=== PATIENT | male | born 1990 | race Caucasian/White ===

== ENCOUNTER 2017-02-28 18:26 | Inpatient (IN) | payer SELFPAY ==
[~2017-02-28] VITALS: Ht 184.2 cm; Wt 134.5 kg
--- NOTE | 2017-02-28 19:07 | EMERGENCY ROOM VISIT NOTE ---
History Report prepared by Jackson: Nicolasa Issa Under the Supervision of: Dr. Danish Macario M.D. First contact with patient: 18:41 Chief Complaint: MENTAL HEALTH EVALUATION Stated Complaint: UNSTABLE MENTALLY History of Present Illness The patient is a 26 year old male who presents to the Emergency Room for a mental health evaluation. The patient has been feeling intermittently depressed for a while now. He has been under increased stress with his relationship and work. Yesterday, he had an episode where he shut down and felt like he could not do anything. He has been lashing out at people. He has thought about hurting himself by driving his motorcycle into a car. He has not tried hurting himself. He denies any thoughts of hurting others. He has never had psychiatric help before. He has not been sleeping well. He notes that he recently got a new puppy. His appetite has been normal. He is not on any medications. He admits to occasional alcohol use. He denies any drug use. He does not have any weakness, abdominal pain, leg swelling, or other physical complaints. Source of History: patient Onset: yesterday Position: other (mental health) Quality: other (evaluation) Timing: other (persistent) Associated Symptoms: No abdominal pain, No weakness Note: Pt reports thoughts of hurting self, decreased sleep. Pt denies leg swelling. Review of Systems See HPI for pertinent positives & negatives. A total of 10 systems reviewed and were otherwise negative. Past Medical & Surgical Old medical records were reviewed. Nurse's notes were reviewed and I agree with. No history of previous mental health diagnosis or treatment Family History No significant family history Social History Smoking Status: Never Smoker Occupation Status: employed Current/Historical Medications No Active Prescriptions or Reported Meds Allergies Uncoded Allergies: POISON POORNIMA, OAK, SUMAC (Allergy, Unknown, 04/07/02) Physical Exam Vital Signs Date Time Temp Pulse Resp B/P (MAP) Pulse Ox O2 Delivery O2 Flow Rate FiO2 02/28/17 20:26 106 20 136/90 100 Room Air 02/28/17 18:36 37.0 101 20 144/85 99 Room Air Physical Exam General: Non-ill appearing young male in no acute distress. Somewhat poor eye contact. HEENT: Normal cephalic atraumatic. Pupils are equal round and reactive to light. Extraocular movements are intact. Oropharynx is pink with moist mucous membranes. No swelling of the mouth lips or tongue. Neck: Supple with a midline trachea. No meningeal signs or stiffness, no JVD or bruits. No Stridor. Chest: Clear to auscultation bilaterally. No wheezes or rhonchi. No increased work of breathing. Heart: regular rate and rhythm. Abdomen: Soft nontender, nondistended without rebound guarding or rigidity. Extremities: No cyanosis clubbing or edema. No calf tenderness or assymetry Spine/Back. Non tender to palpation. No CVA tenderness Skin: Good turgor without rashes. Neurologic exam: Cranial nerves two through 12 are intact. Motor and sensation are intact and symmetrical throughout. Psych: Normal thought process. Mildly flattened affect. Denies homicidal ideation. No suicidal ideation at present. Medical Decision & Procedures Laboratory Results 02/28/17 18:58 Red Blood Count 5.49, Mean Corpuscular Volume 90.3, Mean Corpuscular Hemoglobin 30.8, Mean Corpuscular Hemoglobin Concent 34.1, Mean Platelet Volume 9.6, Neutrophils (%) (Auto) 80.2, Lymphocytes (%) (Auto) 5.0, Monocytes (%) (Auto) 14.5, Eosinophils (%) (Auto) 0.1, Basophils (%) (Auto) 0.1, Neutrophils # (Auto ) 6.95, Lymphocytes # (Auto) 0.43, Monocytes # (Auto) 1.26, Eosinophils # (Auto ) 0.01, Basophils # (Auto) 0.01 02/28/17 18:58 Test 02/28/17 18:58 02/28/17 19:20 White Blood Count 8.67 K/uL (4.8-10.8) Red Blood Count 5.49 M/uL (4.7-6.1) Hemoglobin 16.9 g/dL (14.0-18.0) Hematocrit 49.6 % (42-52) Mean Corpuscular Volume 90.3 fL (80-100) Mean Corpuscular Hemoglobin 30.8 pg (25-34) Mean Corpuscular Hemoglobin Concent 34.1 g/dl (32-36) Platelet Count 180 K/uL (130-400) Mean Platelet Volume 9.6 fL (7.4-10.4) Neutrophils (%) (Auto) 80.2 % Lymphocytes (%) (Auto) 5.0 % Monocytes (%) (Auto) 14.5 % Eosinophils (%) (Auto) 0.1 % Basophils (%) (Auto) 0.1 % Neutrophils # (Auto) 6.95 K/uL (1.4-6.5) Lymphocytes # (Auto) 0.43 K/uL (1.2-3.4) Monocytes # (Auto) 1.26 K/uL (0.11-0.59) Eosinophils # (Auto) 0.01 K/uL (0-0.5) Basophils # (Auto) 0.01 K/uL (0-0.2) RDW Standard Deviation 44.0 fL (36.4-46.3) RDW Coefficient of Variation 13.4 % (11.5-14.5) Immature Granulocyte % (Auto) 0.1 % Immature Granulocyte # (Auto) 0.01 K/uL (0.00-0.02) Anion Gap 7.0 mmol/L (3-11) Est Creatinine Clear Calc Drug Dose 131.5 ml/min Estimated GFR () 94.5 Estimated GFR (Non- 81.6 BUN/Creatinine Ratio 9.8 (10-20) Calcium Level 9.2 mg/dl (8.5-10.1) Total Bilirubin 0.6 mg/dl (0.2-1) Direct Bilirubin 0.1 mg/dl (0-0.2) Aspartate Amino Transf (AST/SGOT) 47 U/L (15-37) Alanine Aminotransferase (ALT/SGPT) 107 U/L (12-78) Alkaline Phosphatase 71 U/L (45-117) Total Protein 8.2 gm/dl (6.4-8.2) Albumin 4.2 gm/dl (3.4-5.0) Lipase 222 U/L (73-393) Thyroid Stimulating Hormone (TSH) 0.316 uIu/ml (0.300-4.500) Salicylates Level < 1.7 mg/dl (2.8-20) Acetaminophen Level < 2 ug/ml (10-30) Ethyl Alcohol mg/dL < 3.0 mg/dl (0-3) Urine Opiates Screen NEG (NEG) Urine Methadone, Qualitative NEG (NEG) Urine Barbiturates NEG (NEG) Urine Phencyclidine (PCP) Level NEG (NEG) Ur Amphetamine/Methamphetamine NEG (NEG) MDMA (Ecstasy) Screen NEG (NEG) Urine Benzodiazepines Screen NEG (NEG) Urine Cocaine Metabolite NEG (NEG) Urine Marijuana (THC) NEG (NEG) Laboratory studies as stated above per my review. Medications Administered Medications (Trade) Dose Ordered Sig/Nisa Route Start Time Stop Time Status Last Admin Dose Admin Acetaminophen (Tylenol Tab) 650 mg NOW STAT PO 02/28/17 22:50 02/28/17 22:51 DC 02/28/17 22:59 650 MG ED Course 184: Past medical records reviewed. The patient was evaluated in room A5, and a complete history and physical examination were performed. 225: Acetaminophen 650 mg PO. 225: The patient has been accepted to [address] [place] [address]. Medical Decision Differentials include, but are not limited to; depression, anxiety, electrolyte or metabolic abnormality. This patient comes in as described above. He is requesting mental health evaluation and treatment. He has had fleeting suicidal thoughts but not at present denies homicidal thoughts. He has not tried to hurt himself. Multiple blood tests was obtained for medical clearance as well as urine. He was reassessed frequently. He was medically cleared. He has no electrolyte or metabolic abnormalities. He has nothing to suggest acute toxicologic process. He was evaluated by our case management team and evaluated by 3 S. and will be admitted for further inpatient treatment and evaluation. Medication Reconcilliation Current Medication List: was personally reviewed by me Blood Pressure Screening Patient's blood pressure: Elevated blood pressure Blood pressure disposition: Elevated BP felt to be situational Impression Primary Impression: Depression Scribe Attestation The scribe's documentation has been prepared under my direction and personally reviewed by me in its entirety. I confirm that the note above accurately reflects all work, treatment, procedures, and medical decision making performed by me. Departure Information Dispostion Mental Health Acute Care Prescriptions No Active Prescriptions or Reported Meds Referrals No Doctor, Assigned (PCP) Patient Instructions [facility]
[2017-02-28 19:14] LABS: BASO % 0.1 %; BASO ABS # 0.01 K/uL (0-0.2); EOS % 0.1 %; EOS ABS # 0.01 K/uL (0-0.5); HEMATOCRIT 49.6 % (42-52); HEMOGLOBIN 16.9 g/dL (14.0-18.0); IG# 0.01 K/uL (0.00-0.02); LYMPH ABS # 0.43 K/uL (1.2-3.4); MEAN CELL VOLUME 90.3 fL (80-100); MEAN CORPUSCULAR HEMOGLOBIN 30.8 pg (25-34); MEAN CORPUSCULAR HGB CONC 34.1 g/dl (32-36); MEAN PLATELET VOLUME 9.6 fL (7.4-10.4); MONO % 14.5 %; MONO ABS # 1.26 K/uL (0.11-0.59); NEUT % 80.2 %; NEUT ABS # 6.95 K/uL (1.4-6.5); PLATELET COUNT 180 K/uL (130-400); RED CELL DISTRIBUTION WIDTH CV 13.4 % (11.5-14.5); WHITE BLOOD COUNT 8.67 K/uL (4.8-10.8)
[2017-02-28 19:32] LABS: ALBUMIN 4.2 gm/dl (3.4-5.0); CALCIUM 9.2 mg/dl (8.5-10.1); CREATININE 1.21 mg/dl (0.60-1.40); POTASSIUM 3.5 mmol/L (3.5-5.1)
[2017-02-28 19:42] LABS: TOTAL PROTEIN 8.2 gm/dl (6.4-8.2)
[2017-02-28 20:26] VITALS: O2SAT 100
[2017-02-28] MEDS ORDERED: ACETAMINOPHEN 325 MG TAB PO STA (22:50)
[2017-02-28] MEDS ORDERED: NURSING VERBAL MED ORDER ONE (23:00)
[2017-02-28] MEDS ORDERED: MAGNESIUM HYDROXIDE SUSP 30 ML UDC PO PRN (23:30)
[2017-02-28] MEDS ORDERED: ACETAMINOPHEN 325 MG TAB PO PRN (23:30)
[2017-02-28] MEDS ORDERED: SODIUM CHLORIDE 0.65% NA SOLN 45 ML (OCEAN) PRN (23:30)
[2017-02-28] MEDS ORDERED: ALUMINUM/MAGNESIUM SUSP 30 ML UDC PO PRN (23:30)
[2017-02-28] MEDS ORDERED: BISMUTH SUBSALICYLATE PER ML OMNICELL CHARGE PO PRN (23:30)
[2017-02-28] MEDS ORDERED: hydrOXYzine HCL 25 MG TAB PO PRN ×2 (23:30)
[2017-03-01 00:27] VITALS: BP 136/90; PULSE 82; TEMP 37; Ht 184.2 cm; Wt 134.5 kg
[2017-03-01 07:05] VITALS: BP_SYST 118; BP_SYST 138; BP_DIAS 78; BP_DIAS 83; PULSE 78; PULSE 87; TEMP 36.6
--- NOTE | 2017-03-01 12:27 | Psychiatric History & Physical ---
History Date of Service Mar 01, 2017. Identifying Data Don Dudley is a 26-year-old male admitted on Feb 28, 2017 at 23:02 on a voluntary admission from [facility] ER where he presented with suicidal ideation to crash motorcycle. He has no prior psychiatric history. He is found to be an adequate historian and appears reliable. Chief Complaint "I just got overwhelmed. It felt like shit storm". History of Present Illness This patient presented to the ER last evening. Complained of feeling intermittently depressed for a while with increased stress associated with work and relationship. On day prior to presentation he felt "shut down and felt like he could not do anything." Had been lashing out at people and had thoughts about hurting himself by driving motorcycle into a car he denied acts of furtherance. He denied thoughts of harming others. He noted other stressors included getting a new puppy and diminished sleep. He was medically cleared and admitted to the behavioral health unit on a voluntary status. Today he reports his mood baseline is typically on the good side but has experienced episodic lows that have been situationally triggered and typically last only several days. During these times of low mood he has experienced passive thoughts of life not being worth living but describes these as extremely fleeting and he is aware when they occur that he needs to do something different. He denies any history of suicidal attempts or self- injurious behavior. He denies thoughts of harming anyone else. Regarding suicidal ideation experienced prior to arrival he describes feeling acutely overwhelmed by his circumstances and had visions of himself crashing his motorcycle however made no efforts to follow through with that plan and denies any other thoughts of self-harm. This morning he denies continued suicidal ideation and expresses some eagerness to discharge from the hospital as soon as possible "to move forward." He is able to identify disappointment that a relationship with a longtime female friend seems to become more intimate and then more distant repeatedly. He would like to pursue an intimate relationship with this person and is disappointed when things backslide and he describes it is confusing. He believes this in combination with chronic work stress and the sleep disturbance associated with great training a new puppy who is only 3 months old resulted in feeling so overwhelmed this week. He has been waking up every 2 hours for the dog. Energy fair. Has had a few crying spells. Denies changes in appetite. Denies anhedonia. Denies excessive free- floating anxiety or history of panic attacks. He does describe some mild social anxiety in meeting new people but denies that this is significantly impairing or distressing. Denies symptoms of OCD, PTSD, joe, or psychosis. He denies substance abuse. Denies history of violence or access to guns. He is hesitant to consider a psychotropic stating "I don't want anything that is going to numb me." He is interested in therapy. "I think it would just really help to talk to someone. I tend to keep it all bottled up until I explode." Past Psychiatric History Current OP Treatment: no current treatment Prior OP Treatment: no prior treatment Prior Psych Hospitalizations: none Access to a Gun: No Suicide Attempts: No Past Medication Trials none Past Medical/Surgical History History of Concussion/Seizure: No Denies any history of chronic medical problems including personal history of obesity, dyslipidemia, cardiovascular disease, seizure disorder, diabetes, hypertension Allergies Allergies: Uncoded Allergies: POISON POORNIMA, OAK, SUMAC (Allergy, Unknown, 04/07/02) Home Medications No Active Prescriptions or Reported Meds Family History No significant family history Denies any known family history of psychiatric diagnoses. Father may have hypertension. Grandmother had diabetes and hypertension. Otherwise he is unaware of a family history of obesity, diabetes, hypertension, dyslipidemia, or cardiovascular disease. Alcohol Use Alcohol Use In Past 12 Months: Yes ("Moderate. Nothing every day") AUDIT Total Score: 6 Last used alcohol on ' Nicole consuming approximately 4 alcoholic beverages. Reports alcohol use is infrequent and denies a history of daily use , associated social problems, or withdrawal Smoking Use Smoking Status: Never Smoker Substance History He denies any history of recreational drug use Personal History Lives in: [place] with several roommates Childhood: From [place], [place]. Reports "okay" relationship with parents. Father works at [employer] and mother is a homemaker. He is the youngest of 3 siblings. Never got along well with oldest brother who is 10 years his senior. As middle brother became more controlling, their relationship declined as well. 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 Otherwise 10 point review of systems is diffusely negative except as per history of present illness Examination Physical Examination A physical exam was performed in the ER prior to admission to the unit by Dr Macario. I accept that physical as medical clearance for the inpatient physical exam. Vital Signs Vital Signs Past 12 Hours Date Time Temp Pulse Resp B/P (MAP) Pulse Ox O2 Delivery O2 Flow Rate FiO2 03/01/17 07:05 36.6 78 16 118/78 87 138/83 03/01/17 00:27 37.0 82 20 136/90 Laboratory Results Last 24 Hours Test 02/28/17 18:58 02/28/17 19:20 White Blood Count 8.67 K/uL Red Blood Count 5.49 M/uL Hemoglobin 16.9 g/dL Hematocrit 49.6 % Mean Corpuscular Volume 90.3 fL Mean Corpuscular Hemoglobin 30.8 pg Mean Corpuscular Hemoglobin Concent 34.1 g/dl Platelet Count 180 K/uL Mean Platelet Volume 9.6 fL Neutrophils (%) (Auto) 80.2 % Lymphocytes (%) (Auto) 5.0 % Monocytes (%) (Auto) 14.5 % Eosinophils (%) (Auto) 0.1 % Basophils (%) (Auto) 0.1 % Neutrophils # (Auto) 6.95 K/uL Lymphocytes # (Auto) 0.43 K/uL Monocytes # (Auto) 1.26 K/uL Eosinophils # (Auto) 0.01 K/uL Basophils # (Auto) 0.01 K/uL RDW Standard Deviation 44.0 fL RDW Coefficient of Variation 13.4 % Immature Granulocyte % (Auto) 0.1 % Immature Granulocyte # (Auto) 0.01 K/uL Sodium Level 138 mmol/L Potassium Level 3.5 mmol/L Chloride Level 103 mmol/L Carbon Dioxide Level 27 mmol/L Anion Gap 7.0 mmol/L Blood Urea Nitrogen 12 mg/dl Creatinine 1.21 mg/dl Est Creatinine Clear Calc Drug Dose 131.5 ml/min Estimated GFR () 94.5 Estimated GFR (Non- 81.6 BUN/Creatinine Ratio 9.8 Random Glucose 96 mg/dl Calcium Level 9.2 mg/dl Total Bilirubin 0.6 mg/dl Direct Bilirubin 0.1 mg/dl Aspartate Amino Transf (AST/SGOT) 47 U/L Alanine Aminotransferase (ALT/SGPT) 107 U/L Alkaline Phosphatase 71 U/L Total Protein 8.2 gm/dl Albumin 4.2 gm/dl Lipase 222 U/L Thyroid Stimulating Hormone (TSH) 0.316 uIu/ml Salicylates Level < 1.7 mg/dl Acetaminophen Level < 2 ug/ml Ethyl Alcohol mg/dL < 3.0 mg/dl Urine Opiates Screen NEG Urine Methadone, Qualitative NEG Urine Barbiturates NEG Urine Phencyclidine (PCP) Level NEG Ur Amphetamine/Methamphetamine NEG MDMA (Ecstasy) Screen NEG Urine Benzodiazepines Screen NEG Urine Cocaine Metabolite NEG Urine Marijuana (THC) NEG Mental Examination During interview pt is: alert and oriented, cooperative Appearance: appropriately dressed, disheveled Eye contact is: good Motor behavior is: psychomotor retardation Speech: normal in rate, rhythm & volume Affect: mood congruent, constricted Mood is: depressed Thought process: goal directed, linear, logical, clear, coherent Thought content: reality based without delusions Suicidal thought are: denied (presently. Suicidal ideation with plan to crash motorcycle on initial presentation) Homicidal thoughts are: denied Hallucinations: denies auditory, denies visual Cognition: memory grossly intact, attention grossly intact Intelligence estimated to be: consistent with level of education Insight: fair Judgement: limited Impression / Recommendations Impression This is a 26-year-old single gentleman with no prior psychiatric history who recently found himself emotionally overwhelmed in the setting of relationship disappointment, sleep deprivation, and chronic work stress. He decompensated to the point of inability to function at work and experienced acute onset suicidal ideation which has subsequently quickly resolved. He describes a history of milder brief mood decompensations in the past, typically situationally triggered. He expresses a desire to pursue psychotherapy but is reluctant to consider psychotropic medication. Diagnosis: MDD, single episode, severe, without psychosis Inventory Assets Strengths: Help seeking, no prior psychiatric history Needs: Acute emotional support and a period of monitoring Risk Factors Assessment Male: Yes : Yes /single/: Yes Access to guns: No Health problems: No Substance use disorders: No Previous attempt: No Family history of suicide: No Previous psychiatric stay: No Hopelessness: No Smoker: No Protective Factors Assessment Mu-Ism beliefs: No : No Responsible for young children: No Employed: Yes Recommendations (1) Depression 03/01/17 - Patient is admitted to the behavioral health unit on a voluntary status and will participate in unit therapeutic programming as appropriate while monitored on suicide precautions with safety checks - Suicidal ideation quickly resolved this morning but requires a period of monitoring for safety prior to discharge - Educated regarding consideration for antidepressant trial which included a lengthy discussion guarding risks and benefits of various agents. I encouraged him to consider a low-dose SSRI to reduce risk of further decompensation however he was reluctant but will be readdressed again over the course of his stay - Patient was strongly encouraged to participate in individual and group therapeutic programming - Will refer patient for outpatient therapy prior to discharge CPT Code Initial Hospital Care: [id number]
[2017-03-02 07:07] VITALS: BP_SYST 125; BP_SYST 126; BP_DIAS 81; BP_DIAS 84; PULSE 74; PULSE 93; TEMP 36.8
--- NOTE | 2017-03-02 13:26 | Psychiatric Progress Notes ---
Progress Note Date of Service Mar 02, 2017. Interval History Don Dudley is a 26-year-old male admitted on Feb 28, 2017 at 23:02 on a voluntary admission from [facility] ER where he presented with suicidal ideation to crash motorcycle. He has no prior psychiatric history. Chief Complaint "Better". Subjective Patient was seen & assessed interval progress reviewed with Treatment Team. STaff report he submitted a 72 hour notice, and is refusing family involvement. He did agree to a meeting with his friend and it was held this morning. Per social work, she told him she is not interested in a romantic relationship. They discussed the mixed messages and appropriate boundaries, as they have been physically intimate. He was seen today with Nadeem Crawford, MS3. He reports improved mood, although still feels disappointed about the outcome of his meeting. He is hopeful that he can improve, and wants to learn what he can do to address his issues and move forward. He denies SI. He is willing to follow up with an outpatient therapist, and SW trying to find a provider as he has no insurance. He is hoping to leave as soon as tomorrow, stating he doesn't think groups work well for him, and he prefers intensive 1:1 therapy. Sleep Information Total Hours of Sleep: 7.00 Meal Information Percent of Breakfast Consumed: 100 Percent of Lunch Consumed: 100 Percent of Dinner Consumed: 100 Mental Status Exam During interview pt is: alert and oriented, cooperative Appearance: appropriately dressed, disheveled Eye contact is: good Motor behavior is: psychomotor retardation Speech: normal in rate, rhythm & volume Affect: mood congruent, constricted Mood is: depressed Thought process: goal directed, linear, logical, clear, coherent Thought content: reality based without delusions Suicidal thought are: denied Homicidal thoughts are: denied Hallucinations: denies auditory, denies visual Cognition: memory grossly intact, attention grossly intact Intelligence estimated to be: consistent with level of education Insight: fair Judgement: fair Impression 26-year-old single gentleman with no prior psychiatric history who recently found himself emotionally overwhelmed in the setting of relationship disappointment, sleep deprivation, and chronic work stress. He decompensated to the point of inability to function at work and experienced suicidal ideation which has subsequently quickly resolved. He describes a history of milder brief mood decompensations in the past, typically situationally triggered. He expresses a desire to pursue psychotherapy but is reluctant to consider psychotropic medication. He had a meeting with his female friend today, which was difficult as she confirmed her lack of interest in pursuing a romantic relationship. We are exploring options for outpatient therapy. Diagnosis: MDD, single episode, severe, without psychosis Plan (1) Depression 03/01/17 - Patient is admitted to the behavioral health unit on a voluntary status and will participate in unit therapeutic programming as appropriate while monitored on suicide precautions with safety checks - Suicidal ideation quickly resolved this morning but requires a period of monitoring for safety prior to discharge - Educated regarding consideration for antidepressant trial which included a lengthy discussion guarding risks and benefits of various agents. I encouraged him to consider a low-dose SSRI to reduce risk of further decompensation however he was reluctant but will be readdressed again over the course of his stay - Patient was strongly encouraged to participate in individual and group therapeutic programming - Will refer patient for outpatient therapy prior to discharge 03/02 - Meeting held with female friend and addressed their relationship. Patient continues to decline medication, preferring to try to treat his symptoms with therapy alone. Social work to explore options for therapy, as he does not have insurance and has limited income. Perhaps he could be referred through [facility] for assistance. Patient to work on a safety plan, and may be discharged as early as tomorrow. Discharge / Aftercare Planning Primary Care Physician: Name: Devora Therapist: Name: Devora Counselor Supervisor: Name: Devora Visit Code E&M Code: 62635 Inventory Assets Strengths: Help seeking, no prior psychiatric history Needs: Acute emotional support and a period of monitoring Risk Factors Assessment Male: Yes : Yes /single/: Yes Health problems: No Substance use disorders: No Previous attempt: No Family history of suicide: No Previous psychiatric stay: No Hopelessness: No Smoker: No Protective Factors Assessment Scientology beliefs: No : No Responsible for young children: No Employed: Yes Data Vital Signs Last 24 Hrs: Date Time Temp Pulse Resp B/P (MAP) Pulse Ox O2 Delivery O2 Flow Rate FiO2 03/02/17 07:07 36.8 74 16 125/81 93 126/84 Meds Administered Last 24 Hrs: Meds Administered (Past 24Hrs) Medications (Trade) Dose Ordered Sig/Nisa Route Start Time Stop Time Status Last Admin Dose Admin Acetaminophen (Tylenol Tab) 650 mg NOW STAT PO 02/28/17 22:50 02/28/17 22:51 DC 02/28/17 22:59 650 MG Hydroxyzine HCl (Vistaril Tab) 50 mg HSZ PRN PO 02/28/17 23:30 03/30/17 23:29 02/28/17 23:49 50 MG
[2017-03-03 06:57] VITALS: BP_SYST 123; BP_SYST 125; BP_DIAS 83; BP_DIAS 87; PULSE 69; PULSE 99; TEMP 36.5
--- NOTE | 2017-03-03 09:40 | Discharge Instructions ---
Discharge Instructions Admission Reason for Admission: MDD Discharge Discharge Diagnosis / Problem: Depression Discharge Goals Goal(s): Improve function, Increase independence Activity Recommendations Activity Limitations: resume your previous activity . Instructions / Follow-Up Instructions / Follow-Up . SPECIAL CARE INSTRUCTIONS: 1. Follow through with your scheduled aftercare appointments. If unable to keep an appointment, please call to reschedule. 2. Take your medication only as prescribed. Medication should not be changed or stopped without the approval of your doctor. In the event of worsening symptoms or concerns about side effects, contact your doctor immediately. 3. Utilize new healthy coping skills, anger management skills, and stress management skills learned during your hospitalization. Journal feelings and process them with a support person. Identify stressors or situations that may result in relapse, deterioration or inappropriate behaviors and develop a plan to deal with those issues. 4. If your coping skills are ineffective and you are in crisis, contact your outpatient providers for direction. If unable to reach your providers, please call the CAN HELP LINE AT or go to the closest Emergency Room. 5. Avoid alcohol and un-prescribed drugs. 6. You have been provided with the Mental Health Advance Directives Pamphlet for your review. AFTERCARE APPOINTMENTS: * Please call your insurance company prior to your scheduled appointment to confirm your aftercare providers are covered. Take your insurance information to your appointments. . Diet Recommendations Diet(s): Regular Diet Laboratory Results Test 02/28/17 18:58 02/28/17 19:20 Range/Units White Blood Count 8.67 4.8-10.8 K/uL Red Blood Count 5.49 4.7-6.1 M/uL Hemoglobin 16.9 14.0-18.0 g/dL Hematocrit 49.6 42-52 % Mean Corpuscular Volume 90.3 80-100 fL Mean Corpuscular Hemoglobin 30.8 25-34 pg Mean Corpuscular Hemoglobin Concent 34.1 32-36 g/dl Platelet Count 180 130-400 K/uL Mean Platelet Volume 9.6 7.4-10.4 fL Neutrophils (%) (Auto) 80.2 % Lymphocytes (%) (Auto) 5.0 % Monocytes (%) (Auto) 14.5 % Eosinophils (%) (Auto) 0.1 % Basophils (%) (Auto) 0.1 % Neutrophils # (Auto) 6.95 1.4-6.5 K/uL Lymphocytes # (Auto) 0.43 1.2-3.4 K/uL Monocytes # (Auto) 1.26 0.11-0.59 K/uL Eosinophils # (Auto) 0.01 0-0.5 K/uL Basophils # (Auto) 0.01 0-0.2 K/uL RDW Standard Deviation 44.0 36.4-46.3 fL RDW Coefficient of Variation 13.4 11.5-14.5 % Immature Granulocyte % (Auto) 0.1 % Immature Granulocyte # (Auto) 0.01 0.00-0.02 K/uL Sodium Level 138 136-145 mmol/L Potassium Level 3.5 3.5-5.1 mmol/L Chloride Level 103 98-107 mmol/L Carbon Dioxide Level 27 21-32 mmol/L Anion Gap 7.0 3-11 mmol/L Blood Urea Nitrogen 12 7-18 mg/dl Creatinine 1.21 0.60-1.40 mg/dl Est Creatinine Clear Calc Drug Dose 131.5 ml/min Estimated GFR () 94.5 Estimated GFR (Non- 81.6 BUN/Creatinine Ratio 9.8 10-20 Random Glucose 96 70-99 mg/dl Calcium Level 9.2 8.5-10.1 mg/dl Total Bilirubin 0.6 0.2-1 mg/dl Direct Bilirubin 0.1 0-0.2 mg/dl Aspartate Amino Transf (AST/SGOT) 47 15-37 U/L Alanine Aminotransferase (ALT/SGPT) 107 12-78 U/L Alkaline Phosphatase 71 45-117 U/L Total Protein 8.2 6.4-8.2 gm/dl Albumin 4.2 3.4-5.0 gm/dl Lipase 222 73-393 U/L Thyroid Stimulating Hormone (TSH) 0.316 0.300-4.500 uIu/ml Salicylates Level < 1.7 2.8-20 mg/dl Acetaminophen Level < 2 10-30 ug/ml Ethyl Alcohol mg/dL < 3.0 0-3 mg/dl Urine Opiates Screen NEG NEG Urine Methadone, Qualitative NEG NEG Urine Barbiturates NEG NEG Urine Phencyclidine (PCP) Level NEG NEG Ur Amphetamine/Methamphetamine NEG NEG MDMA (Ecstasy) Screen NEG NEG Urine Benzodiazepines Screen NEG NEG Urine Cocaine Metabolite NEG NEG Urine Marijuana (THC) NEG NEG Medical Emergencies . Who to Call and When: Medical Emergencies: If at any time you feel your situation is an emergency, please call 911 immediately. . Non-Emergent Contact Non-Emergency issues call your: Psychiatrist, Therapist . "Provider Documentation" section prepared by Oly Lomeli. . VTE Core Measure Inpt VTE Proph given/why not?: Treatment not indicated
--- NOTE | 2017-03-03 10:02 | Discharge Summary ---
Discharge Summary Dates / Dispostion Admission Date / Time: Feb 28, 2017 at 23:02 Discharge Date: Mar 03, 2017 Discharge Disposition: Home Principal Diagnosis (1) Depression Discharge / Aftercare Planning Primary Care Physician: Name: none Therapist: Name: Nahomy Eisenberg Date of Appointment: Mar 04, 2017 Time of Appointment: 11:00 am Appointment Notes: [address] [place] [id number] Fullerette: Name: Luísies Medication Reconciliation Medication Profile: No Active Prescriptions or Reported Meds Admission HPI Per the Admitting provider: This patient presented to the ER last evening. Complained of feeling intermittently depressed for a while with increased stress associated with work and relationship. On day prior to presentation he felt "shut down and felt like he could not do anything." Had been lashing out at people and had thoughts about hurting himself by driving motorcycle into a car he denied acts of furtherance. He denied thoughts of harming others. He noted other stressors included getting a new puppy and diminished sleep. He was medically cleared and admitted to the behavioral health unit on a voluntary status. Today he reports his mood baseline is typically on the good side but has experienced episodic lows that have been situationally triggered and typically last only several days. During these times of low mood he has experienced passive thoughts of life not being worth living but describes these as extremely fleeting and he is aware when they occur that he needs to do something different. He denies any history of suicidal attempts or self- injurious behavior. He denies thoughts of harming anyone else. Regarding suicidal ideation experienced prior to arrival he describes feeling acutely overwhelmed by his circumstances and had visions of himself crashing his motorcycle however made no efforts to follow through with that plan and denies any other thoughts of self-harm. This morning he denies continued suicidal ideation and expresses some eagerness to discharge from the hospital as soon as possible "to move forward." He is able to identify disappointment that a relationship with a longtime female friend seems to become more intimate and then more distant repeatedly. He would like to pursue an intimate relationship with this person and is disappointed when things backslide and he describes it is confusing. He believes this in combination with chronic work stress and the sleep disturbance associated with great training a new puppy who is only 3 months old resulted in feeling so overwhelmed this week. He has been waking up every 2 hours for the dog. Energy fair. Has had a few crying spells. Denies changes in appetite. Denies anhedonia. Denies excessive free- floating anxiety or history of panic attacks. He does describe some mild social anxiety in meeting new people but denies that this is significantly impairing or distressing. Denies symptoms of OCD, PTSD, joe, or psychosis. He denies substance abuse. Denies history of violence or access to guns. He is hesitant to consider a psychotropic stating "I don't want anything that is going to numb me." He is interested in therapy. "I think it would just really help to talk to someone. I tend to keep it all bottled up until I explode. Hospital Course (1) Depression 03/01/17 - Patient is admitted to the behavioral health unit on a voluntary status and will participate in unit therapeutic programming as appropriate while monitored on suicide precautions with safety checks - Suicidal ideation quickly resolved this morning but requires a period of monitoring for safety prior to discharge - Educated regarding consideration for antidepressant trial which included a lengthy discussion guarding risks and benefits of various agents. I encouraged him to consider a low-dose SSRI to reduce risk of further decompensation however he was reluctant but will be readdressed again over the course of his stay - Patient was strongly encouraged to participate in individual and group therapeutic programming - Will refer patient for outpatient therapy prior to discharge 03/02 - Meeting held with female friend and addressed their relationship. Patient continues to decline medication, preferring to try to treat his symptoms with therapy alone. Social work to explore options for therapy, as he does not have insurance and has limited income. Perhaps he could be referred through [facility] for assistance. Patient to work on a safety plan, and may be discharged as early as tomorrow. Risk Factors Assessment Male: Yes : Yes /single/: Yes Health problems: No Substance use disorders: No Previous attempt: No Family history of suicide: No Previous psychiatric stay: No Hopelessness: No Smoker: No Protective Factors Assessment Adventist beliefs: No : No Responsible for young children: No Employed: Yes Day of Discharge Assessment COURSE OF HOSPITALIZATION: The patient was on our unit for 3 days. He was admitted voluntarily with multiple stressors including work, having a new puppy , and relationship issues. He had a female friend with whom he wanted to have a serious relationship however the friend wanted to keep it superficial. She did come in for a meeting during which time she was able to tell him she did not want a more serious relationship and as a matter fact wanted to end the relationship altogether. He processed this with staff after the meeting, understanding his friend's wishes. Although it's not what he wanted he felt okay with it and said he wouldn't work to move past this. He declined the offer of medications during his stay. He was willing for outpatient therapy and was established with [facility] for outpatient therapy starting tomorrow, March 04. He denied any further thoughts of suicide. He denied any homicidal ideation. He denied any evidence of thought disorder. He did submit a 72 hour notice to withdraw from treatment during his first stay. There was no criteria to keep him against his will and so the patient will be discharged today. DAY OF DISCHARGE ASSESSMENT: Today the patient is requesting discharge. He has no concerns about going home. He is looking forward to getting some fast food, returning to work. He continues to deny any suicidal or homicidal thinking. We discussed a safety plan which includes taking a ride in his car, talking with friends. His boss at work knows he was here and so that will be a resource as well. His therapy appointment is tomorrow. Today he is casually and appropriately dressed and groomed. Gait and station are within normal limits. Eye contact is good. Affect is restricted. Speech is of normal rate volume and tone. Thoughts are organized, goal directed, and without evidence of thought disorder. Recent and remote memory are intact per conversation. Intelligence is estimated to be average. Insight and judgment are improved over admission. Laboratory 02/28/17 18:58 Red Blood Count 5.49, Mean Corpuscular Volume 90.3, Mean Corpuscular Hemoglobin 30.8, Mean Corpuscular Hemoglobin Concent 34.1, Mean Platelet Volume 9.6, Neutrophils (%) (Auto) 80.2, Lymphocytes (%) (Auto) 5.0, Monocytes (%) (Auto) 14.5, Eosinophils (%) (Auto) 0.1, Basophils (%) (Auto) 0.1, Neutrophils # (Auto ) 6.95, Lymphocytes # (Auto) 0.43, Monocytes # (Auto) 1.26, Eosinophils # (Auto ) 0.01, Basophils # (Auto) 0.01 02/28/17 18:58 Test 02/28/17 18:58 02/28/17 19:20 White Blood Count 8.67 K/uL (4.8-10.8) Red Blood Count 5.49 M/uL (4.7-6.1) Hemoglobin 16.9 g/dL (14.0-18.0) Hematocrit 49.6 % (42-52) Mean Corpuscular Volume 90.3 fL (80-100) Mean Corpuscular Hemoglobin 30.8 pg (25-34) Mean Corpuscular Hemoglobin Concent 34.1 g/dl (32-36) Platelet Count 180 K/uL (130-400) Mean Platelet Volume 9.6 fL (7.4-10.4) Neutrophils (%) (Auto) 80.2 % Lymphocytes (%) (Auto) 5.0 % Monocytes (%) (Auto) 14.5 % Eosinophils (%) (Auto) 0.1 % Basophils (%) (Auto) 0.1 % Neutrophils # (Auto) 6.95 K/uL (1.4-6.5) Lymphocytes # (Auto) 0.43 K/uL (1.2-3.4) Monocytes # (Auto) 1.26 K/uL (0.11-0.59) Eosinophils # (Auto) 0.01 K/uL (0-0.5) Basophils # (Auto) 0.01 K/uL (0-0.2) RDW Standard Deviation 44.0 fL (36.4-46.3) RDW Coefficient of Variation 13.4 % (11.5-14.5) Immature Granulocyte % (Auto) 0.1 % Immature Granulocyte # (Auto) 0.01 K/uL (0.00-0.02) Anion Gap 7.0 mmol/L (3-11) Est Creatinine Clear Calc Drug Dose 131.5 ml/min Estimated GFR () 94.5 Estimated GFR (Non- 81.6 BUN/Creatinine Ratio 9.8 (10-20) Calcium Level 9.2 mg/dl (8.5-10.1) Total Bilirubin 0.6 mg/dl (0.2-1) Direct Bilirubin 0.1 mg/dl (0-0.2) Aspartate Amino Transf (AST/SGOT) 47 U/L (15-37) Alanine Aminotransferase (ALT/SGPT) 107 U/L (12-78) Alkaline Phosphatase 71 U/L (45-117) Total Protein 8.2 gm/dl (6.4-8.2) Albumin 4.2 gm/dl (3.4-5.0) Lipase 222 U/L (73-393) Thyroid Stimulating Hormone (TSH) 0.316 uIu/ml (0.300-4.500) Salicylates Level < 1.7 mg/dl (2.8-20) Acetaminophen Level < 2 ug/ml (10-30) Ethyl Alcohol mg/dL < 3.0 mg/dl (0-3) Urine Opiates Screen NEG (NEG) Urine Methadone, Qualitative NEG (NEG) Urine Barbiturates NEG (NEG) Urine Phencyclidine (PCP) Level NEG (NEG) Ur Amphetamine/Methamphetamine NEG (NEG) MDMA (Ecstasy) Screen NEG (NEG) Urine Benzodiazepines Screen NEG (NEG) Urine Cocaine Metabolite NEG (NEG) Urine Marijuana (THC) NEG (NEG) Total Time Total Time Spent (min): Greater than 30 minutes Total Time Included: examination of the patient, discharge planning, medication reconciliation, communication with other providers Discharge Instructions Activity Recommendations: no limitations Tobacco Cessation at Discharge FDA approved Prescription: non-smoker
== END 2017-03-03 10:55 | disposition home or self-care (01) | DRG 885 ==
LOC: C.EDB 18:27 → C.MHU 23:02
PROVIDERS: ADMIT Student in an Organized Health Care Education/Training Program; ATTEND Student in an Organized Health Care Education/Training Program
DX: F32.2 Major depressive disorder, single episode, severe without psychotic features (principal); R45.851 Suicidal ideations